=== PATIENT | female | born 1960 | race Two or more races ===

== ENCOUNTER → 2022-10-30 08:00 | Outpatient (BNVA) | payer OTHER, SELFPAY | PROVIDERS: PCP Internal Medicine; Visit Provider Student in an Organized Health Care Education/Training Program | DX: M25.551 Pain in right hip (principal); M65.331 Trigger finger, right middle finger | CPT/HCPCS: 99202 ==

== ENCOUNTER 2022-12-26 11:01 | Outpatient (RCR) | payer OTHER, SELFPAY ==
--- NOTE | 2022-12-26 17:22 | MHC.PT.EP ---
[facility] [place] Office [place] [facility] [place] [facility] [address] Denita Crandall [address] [phone] F: [phone] F: [phone] F: [phone] F: [phone] Physical Therapy Plan of Care Date of Evaluation: Date of Surgery: Diagnosis: L hip pain. Assessment: Pt is a 62 y/o female referred to PT for eval and treat of R greater trochanteric pain resulting in decreased tolerance for sitting, standing, and performing HH chores secondary to sedentary lifestyle, B LE decondition, increased LE tissue tension, TTP of R lateral hip and pain. Pt is deemed an appropriate candidate to receive skilled PT services to address their physical impairments in order to improve their functional ability. Frequency and Duration: The patient will be seen 2 x / wk x4 wks. Short Term Goals: Initiate HEP. Pt will report decreased TTP of R lateral hip by at least 50%. [employer] Goals: I with basic home program. Pt will be able to sit for 1 hour with at most moderate difficulty; initial: extreme difficulty or unable. Improve R hip abd MMT by at least 1/2 MMT. Pt will improve LEFI outcome measure by at least 9 points in order to demonstrate improved function. Treatment Plan: Modalities to reduce pain, spasms and effusion. Manual therapy to restore motion and function. Therapeutic exercise to improve strength and flexibility. Neuromuscular re-education for posture and balance. Therapeutic activities to return to functional activities of daily living. Electronically signed by: Valdez Jorge PT Please sign and return to therapist. Thank you for your referral.
--- NOTE | 2023-01-23 16:07 | MHC.PT.DC ---
[facility] [place] Office [place] Office [place] Office [address] Pepe Crandall [address] [phone] F: [phone] F: [phone] F: [phone] F: [phone] Physical Therapy Discharge Report Diagnosis: L hip pain. Date of Surgery: Date of Evaluation: 12/26/22 Date of Discharge: 01/23/23 Treatments to Date: 1 Cancellations to Date: No Shows to Date: Discharge Status: Patient Elected to Stop Visit Non-compliance Discharge Summary: Electronically signed by: Valdez Jorge PT. Please sign and return to therapist. Thank you for your referral.
== END 2023-01-23 16:07 | disposition home or self-care (01) ==
LOC: HO.PTCHIC 11:01
PROVIDERS: PCP Internal Medicine; Visit Provider Student in an Organized Health Care Education/Training Program
DX: M25.551 Pain in right hip (principal)
CPT/HCPCS: 97110; 97161